=== PATIENT | female | born 1985 | race Caucasian/White ===

== ENCOUNTER → 2018-01-13 09:09 | Outpatient (CLI) | payer MEDICAID, SELFPAY ==
--- NOTE | 2018-01-13 09:42 | MR_ITS ---
MR head/brain wo/w con Ordering Physician: Jose J Villagran MD Patient Age: 32 years: Female HISTORY: ITS.REASON: SENSORY NEURAL HEARING LOSS Hearing loss bilateral hearing loss. Symptoms for years. Dizziness. Headache. TECHNIQUE: Precontrast Multiplanar FLAIR, T1, T2 weighted images along with axial diffusion/ADC imaging performed on 1.5 T. Siemens, MRI. Postcontrast imaging [id number] ProHance T1-weighted images axial & coronal plane performed In addition thin section pre and postcontrast and IACs, axial coronal plane utilized. COMPARISON :CT head 12/29/2016 FINDINGS IACs appear WNL. Cranial nerve VII and VIII appear normal. Normal caliber. Normal course. Trigeminal nerve unremarkable bilateral. No abnormal enhancement. No acoustic neuroma. CP angles clear. Generous normal caliber of symmetric IACs bilaterally.. Overall normal appearance of the transverse dural sinuses and superior sagittal sinus. The posterior fossa is satisfactory. . Posterior Left mastoid tip demonstrate increased signal due to stable appearing opacification of a 10 mm air cell along posterior left mastoid tip. In retrospect this can be seen and appears stable since previous December 2016 CT head studies. Most likely a chronic minimal mastoid effusion here. Otherwise well-developed remaining left mastoid air cell unremarkable and satisfactory. Both right and left mastoid antrum and middle ear appear clear. The right mastoid air cells unremarkable. Remainder the brain shows no abnormal areas of enhancement. No mass lesion no mass effect. The diffusion images show acute infarct nor recent ischemia. . There is normal anatomy Ventricles and basal cisterns appear normal. Cranial cervical junction is normal. Sella unremarkable as is suprasellar cistern region. Orbits appear satisfactory.. Paranasal sinuses are clear with only borderline mucosal thickening at ethmoid air cells. Engorgement of the nasal turbinates with deviation nasal septum convexity to left noted on coronal images The skull appears intact Suggestion of possible small high signal foci in the deep white matter at right cerebral hemisphere. With small 3.5 mm focus increased signal focus deep white matter seen just anterior to right basal ganglia, & just lateral to head of caudate nucleus on right (axial image 12, coronal slice 90) I would note that this is not particularly intense signal becomes less evident on the coronal view. Conceivably could be some reflect some asymmetric deep extension of hanson matter to this region. Is nonspecific observation as isolated finding & for example can be seen with old viral infections. However If clinical symptoms should raise concern regarding demyelinating disease follow-up MRI brain an 6-12 months may be considered. Unlikely vascular disease in this younger age patient At superior left cerebral hemisphere equivocal a small 2.5 mm possible high signal focus seen far superior on axial image 19, coronal slice 12. However this area is on further review this may may reflect white matter margin along deep portion of a thin sulcus. Doubt of significance White matter the posterior fossa and shelley unremarkable IMPRESSION.............. 1. Cranial nerve VII and VIII appear normal. IACs generous symmetrical and normal bilaterally. CP angles posterior clear 2. Opacification of left mastoid 1 cm left posterior mastoid tip air cell..- This appears unchanged since prior CT and likely reflects a minor incidental mastoid effusion. Otherwise the mastoid air cells mastoid antrum middle ear appear clear unremarkable. 3. Normal intracranial anatomy No lesions. No abnormal areas of enhancement. 4. Would only note 3.5 mm possible small deep white matter high signal focus, just anterior to the right basal ganglia.... Nonspecific minor i
== END ==
PROVIDERS: Family Provider Nurse Practitioner Family; PCP Family Medicine; Visit Provider Otolaryngology
DX: H90.5 Unspecified sensorineural hearing loss (principal)
CPT/HCPCS: 70553; A9576

== ENCOUNTER → 2020-12-14 10:06 | Outpatient (CLI) | payer OTHER, SELFPAY ==
--- NOTE | 2020-12-14 10:12 | XR_ITS ---
PROCEDURE: XR MULTIPLE SPINE 6+V CLINICAL INDICATION: LUMBAGO W/SCIATICA,CERVICALGIA,MIDLINE THORACIC BACK PAIN COMPARISON: No exams were available for comparison FINDINGS: Cervical spine: There is straightening/reversal of the normal lordosis which may be due to patient positioning or muscle spasm. No obvious fracture or dislocation. No lytic or blastic change. There is artifact from the patient's hair. The foramina are widely patent. Thoracic spine: Minimal lower thoracic scoliosis convex left. No fracture or dislocation. No lytic or blastic change. There is some minimal degenerative changes in the midthoracic spine with decrease in the disc space and minimal endplate hypertrophic change. Lumbar spine: Minimal lumbar curvature convex right. No fracture or dislocation. No lytic or blastic change. IMPRESSION: No acute finding. Minimal thoracolumbar scoliosis with mild degenerative changes in the midthoracic spine There is straightening/reversal of the normal lordosis of the cervical spine which may be due to patient positioning or muscle spasm. Dictated by: Demetrio Hawk MD 12/16/2020 05:53 Demetrio Hawk MD in [place] 12/16/2020 05:53
== END ==
PROVIDERS: PCP Nurse Practitioner Family; Visit Provider Nurse Practitioner Family
DX: M54.2 Cervicalgia (principal); M54.6 Pain in thoracic spine; M54.41 Lumbago with sciatica, right side; M54.42 Lumbago with sciatica, left side
CPT/HCPCS: 72084

== ENCOUNTER → 2021-02-12 14:18 | Outpatient (CLI) | payer OTHER, SELFPAY | PROVIDERS: PCP Nurse Practitioner Family; Visit Provider Obstetrics & Gynecology Gynecology | DX: Z01.812 Encounter for preprocedural laboratory examination (principal); Z11.52 Encounter for screening for COVID-19 | CPT/HCPCS: U0003 ==

== ENCOUNTER → 2022-06-25 10:48 | Outpatient (CLI) | payer OTHER, SELFPAY | PROVIDERS: PCP Nurse Practitioner Family; Visit Provider Colon & Rectal Surgery | DX: Z01.818 Encounter for other preprocedural examination (principal); Z20.822 Contact with and (suspected) exposure to COVID-19 | CPT/HCPCS: C9803; U0003; U0005 ==

== ENCOUNTER → 2023-04-22 15:26 | Outpatient (CLI) | payer OTHER, SELFPAY ==
--- NOTE | 2023-04-22 16:01 | XR_ITS ---
FINAL REPORT CLINICAL HISTORY: SOA COMPARISON: 09/09/2019 FINDINGS: TWO VIEW CHEST The heart size is normal. The mediastinum is normal. The lungs are clear. There is no pneumothorax. IMPRESSION: No acute cardiopulmonary process. Reviewed, Interpreted and Dictated by Malik Jay III, MD Transcribed by Sanju Samayoa Authenticated and [facility]
[2023-04-22 16:20] LABS: Basophils # 0.1 K/mm3 (0-0.2); Basophils % 0.5 % (0.1-2.0); Eosinophils # 0.2 K/mm3 (0.0-0.4); Eosinophils % 1.4 % (0.1-12.0); Hematocrit 44.9 % (37.0-47.0); Hemoglobin 14.3 g/dL (12.2-16.2); Lymphocytes # 4.4 K/mm3 (0.7-4.5); Lymphocytes % 32.2 % (10-50); Mean Corpuscular HGB Conc 31.8 g/dL (31.8-35.4); Mean Corpuscular Hemoglobin 32.2 pg (27.0-31.2); Mean Corpuscular Volume 101.1 fl (81-99); Mean Platelet Volume 8.3 fl (7.4-10.4); Monocytes # 0.6 K/mm3 (0.1-1.0); Monocytes % 4.2 % (1.7-9.3); Neutrophils # 8.4 K/mm3 (1.8-7.8); Neutrophils % 61.8 % (37.0-80.0); Platelet Count 315 K/mm3 (142-424); Red Blood Count 4.44 M/mm3 (4.20-5.40); Red Cell Distribution Width 12.6 % (11.5-17.5); White Blood Count 13.6 K/mm3 (4.8-10.8)
[2023-04-22 16:25] LABS: Adenovirus F 40/41, stool Not Detected (NotDetected); Astrovirus Not Detected (NotDetected); Campylobacter Not Detected (NotDetected); Cryptosporidium Not Detected (NotDetected); Cyclospora Cayetanesis Not Detected (NotDetected); Entamoeba histolytica Not Detected (NotDetected); Enteroaggregative E coli Not Detected (NotDetected); Enteropathogenic E coli Not Detected (NotDetected); Enterotoxigenic E coli Not Detected (NotDetected); Giardia lamblia Not Detected (NotDetected); Norovirus Not Detected (NotDetected); Plesimonas Shigalloides, PCR Not Detected (NotDetected); Rotavirus A Not Detected (NotDetected); Salmonella, PCR Not Detected (NotDetected); Sapovirus Not Detected (NotDetected); Shiga-like toxin E coli Not Detected (NotDetected); Shigella Enterovasive E coli Not Detected (NotDetected); Vibrio Cholerae Not Detected (NotDetected); Vibrio, PCR Not Detected (NotDetected); Yersinia Entercolitica, PCR Not Detected (NotDetected)
[2023-04-22 16:58] LABS: Alanine Aminotransferase 17 U/L (12-78); Albumin Level 3.9 g/dl (3.5-5.0); Albumin/Globulin Ratio 1.5 (1.1-1.8); Alkaline Phosphatase 61 U/L (38-126); Anion Gap 8.1 mEq/L (5-15); Aspartate Amino Transferase 30 U/L (14-36); Bilirubin,Total < 0.1 mg/dl (0.2-1.3); Blood Urea Nitrogen 7 mg/dl (7-17); Calcium 8.9 mg/dl (8.4-10.2); Carbon Dioxide 29 mmol/L (22.0-30.0); Chloride 107 mmol/L (98-107); Chol/HDL Ratio 3.5 (1-3.5); Cholesterol 173 mg/dl (140-200); Estimated Glomerular Filt Rate 95 ml/min (>60); GFR (African American) 115 ML/MIN (>60); Globulin 2.6 g/dL (1.3-3.2); Glucose 95 mg/dl (74-100); HDL Cholesterol 49 mg/dl (40-60); Potassium 3.1 mmoL/L (3.5-5.1); Sodium 141 mmol/L (136-145); Total Protein,Serum 6.5 g/dl (6.3-8.2); Triglycerides 139 mg/dl (30-150); VLDL Cholesterol 28 mg/dL (0-40)
[2023-04-22 17:10] LABS: Direct LDL Cholesterol 96.72 mg/dL (100-129)
[2023-04-22 17:11] LABS: 25-OH Vitamin D, Total 30.2 ng/mL (30-100)
[2023-04-22 17:26] LABS: Thyroid Stimulating Hormone 0.46 uIU/mL (0.465-4.68)
[2023-04-22 17:45] LABS: Vitamin B12 902 pg/mL (239-931)
[2023-04-23 10:46] LABS: Clostridium Difficile A/B, PCR Detected (NotDetected)
== END ==
PROVIDERS: PCP Nurse Practitioner Family; Visit Provider Nurse Practitioner Family
DX: R06.02 Shortness of breath (principal); R53.83 Other fatigue; N30.00 Acute cystitis without hematuria; R19.7 Diarrhea, unspecified; A04.72 Enterocolitis due to Clostridium difficile, not specified as recurrent
CPT/HCPCS: 36415; 71046; 80053; 80061; 82306; 82607; 84443; 85025; 85378; 87086; 87507

== ENCOUNTER → 2023-04-29 07:41 | Outpatient (CLI) | payer OTHER, SELFPAY ==
[2023-04-29 08:20] VITALS: PULSE 61; PULSE 68
== END ==
PROVIDERS: PCP Nurse Practitioner Family; Visit Provider Nurse Practitioner Family
DX: R06.02 Shortness of breath (principal)
CPT/HCPCS: 94060; 94640

== ENCOUNTER → 2023-05-01 13:58 | Outpatient (CLI) | payer OTHER, SELFPAY ==
--- NOTE | 2023-05-01 14:04 | MR_ITS ---
FINAL REPORT TECHNIQUE: Multi plantar and multisequence imaging of the cervical spine was obtained before and after the administration of intravenous contrast. CLINICAL HISTORY: NECK PAIN ON LEFT SIDE, STIFFNESS OF NECK. MIGRAINE HEADACHE. LEFT ARM PAIN, NUMBNESS, AND TINGLING. NO INJURY OR TRAUMA COMPARISON: None FINDINGS: There is normal alignment of the cervical vertebral bodies. Vertebral body height is preserved. Bone marrow signal intensity is normal. There is no edema or pathologic marrow replacement. The signal intensity within the substance of the spinal cord is normal. There is no paraspinal mass or fluid collection. C2-C3: There is no focal disc herniation, central stenosis or neural foraminal narrowing. C3-C4: There is no focal disc herniation, central stenosis or neural foraminal narrowing. C4-C5: There is no focal disc herniation, central stenosis or neural foraminal narrowing. C5-C6: There is no focal disc herniation, central stenosis or neural foraminal narrowing. C6-C7: An annular bulge is present. There is no significant canal or neural foraminal narrowing. C7-T1: There is no focal disc herniation, central stenosis or neural foraminal narrowing. Postcontrast images reveal no pathologic contrast enhancement. IMPRESSION: Very minimal degenerative change at the C6-7 level, otherwise unremarkable MRI of the cervical spine. Reviewed, Interpreted and Dictated by Dee Reyes MD Transcribed by May Tam Authenticated and [facility]
== END ==
PROVIDERS: PCP Nurse Practitioner Family; Visit Provider Nurse Practitioner Family
DX: M54.2 Cervicalgia (principal); M43.6 Torticollis; R20.0 Anesthesia of skin; R20.2 Paresthesia of skin
CPT/HCPCS: 72156; 76376; A9576

== ENCOUNTER 2023-05-29 09:30 | Outpatient (RCR) | payer OTHER, SELFPAY ==
--- NOTE | 2023-05-07 09:33 | HMH.PTOPEV ---
PT Outpatient Evaluation Rehab PT Outpatient Evaluation Start: 05/07/23 09:18 Freq: Status: Active Protocol: Document 05/07/23 09:18 FRED (Rec: 05/07/23 09:33 FRED [id number]) E-signed By Sergio Menchaca, PT Outpatient Therapy Subjective History Subjective History Patient is a 37 year old female presenting to outpatient PT with reports of sub-acute cervical spine pain with LUE radicular symptoms. Symptoms of insidious onset starting approx 2 months ago. Most recent imaging indicates annular disc bulge of C 6/7. No other comorbidities to report. NDI 54%. Chief Complaint Pain,Stiff,Paresthesia Symptom Type Ache,Sharp,Dull,Numbness, Tingling Symptoms Relieved By Prescription Meds Symptoms Aggravated By Physical Activity,Lifting Prior Functional Limitations None Current Functional Limitations Reaching,Lifting,Housework, Driving,Sleeping Symptom Description Constant but Variable Level of pain today (0-10) 7 Pain scale - at its best (0-10) 4 Pain scale - at its worst (0-10) 8 Cervical Eval Palpation Cervical Muscles R Suboccipital,L Suboccipital, R Upper Trapezius,L Upper Trapezius Posture Head/C-Spine Posture Sitting Position C-Spine Flattened Head/C-Spine Posture Standing Position C-Spine Flattened Flexibility Deficits Upper Trapezius Muscle Length (R) Mild Tightness,(L) Moderate Tightness Scalene Group Muscle Length (R) Mild Tightness,(L) Mild Tightness Pectoralis Minor Muscle Length (R) Moderate Tightness,(L) Moderate Tightness Passive Joint Mobility Cervical PIVM WNL: R OA L OA R AA L AA R C2/3 L C2/3 R C3/4 L C3/4 R C4/5 L C4/5 R C5/6 L C5/6 R C6/7 L C6/7 R C7/T1 L C7/T1 AROM Cervical Spine Extension Active Range
== END 2023-05-29 09:35 | disposition home or self-care (01) ==
LOC: PT 09:30
PROVIDERS: PCP Nurse Practitioner Family; Visit Provider Nurse Practitioner Family
DX: M54.2 Cervicalgia (principal); M43.6 Torticollis; R20.0 Anesthesia of skin; R20.2 Paresthesia of skin
CPT/HCPCS: 97163

== ENCOUNTER 2023-06-17 09:09 | Emergency (ER) | payer OTHER, SELFPAY ==
[2023-06-17 09:10] VITALS: BP 154/84; PULSE 76; RESP 18; TEMP 36.9; O2SAT 98; BMI 26.9
--- NOTE | 2023-06-17 10:34 | EXP.UTC ---
Discharge Plan Disposition Patient Disposition: Home, Self-Care Condition: Good Prescriptions Prescriptions: New pseudoephedrine HCl 30 mg tablet 30 mg PO Q6HP PRN (Reason: Congestion) Qty: 30 0RF methylprednisolone 4 mg Tablets,Dose Pack 4 mg PO DIRECTED Qty: 21 0RF No Action bupropion HCl 300 mg tablet extended release 24 hr 300 mg PO DAILY 30 Days Qty: 30 Patient Comments: albuterol sulfate [ProAir HFA] 90 mcg/actuation HFA aerosol inhaler 2 inh inhalation aripiprazole 30 mg tablet 30 mg PO Dificid 200 mg tablet 200 mg PO DAILY Referrals Follow up/Referrals: Siobhan Carreon APRN [Primary Care Provider] - See instructions Activity Restrictions/Add. Instructions Additional Instructions/Restrictions: Drink plenty of fluids. Take tylenol or ibuprofen for pain or fever. Take the medications as directed. Follow up with your regular doctor. GO TO THE ER FOR ANY WORSENING SYMPTOMS Clinical Impressions Clinical Impression: Sinusitis Instructions Patient Instructions: DI for Sinusitis Discharge ED Provider: Vijay Yoon [facility] General Stated complaint: congestion, cough, runny nose,headache Time Seen by Provider: 06/17/23 10:34 History of Present Illness Provider Complaint: She states that for the past 4 day she has had worsening sinus congestion, ear pain, sore throat and malaise. Related Data Home Medications Medication Instructions Recorded Confirmed bupropion HCl 300 mg 24 hr tablet, 300 mg PO DAILY Depression 30 days 11/14/17 10/03/22 extended release ##30 albuterol sulfate 90 mcg/actuation 2 inh inhalation 10/03/22 10/03/22 aerosol inhaler (ProAir HFA) aripiprazole 30 mg tablet 30 mg PO 10/03/22 10/03/22 fidaxomicin 200 mg tablet (Dificid) 200 mg PO DAILY cdiff 06/17/23 06/17/23 Previous Rx's Medication Instructions Recorded methylprednisolone 4 mg tablets in 4 mg PO DIRECTED #21 tabs 06/17/23 a dose pack pseudoephedrine HCl 30 mg tablet 30 mg PO Q6HP PRN Congestion #30 06/17/23 tabs Allergies Allergy/AdvReac Type Severity Reaction Status Date / Time No Known Allergies Allergy Verified 06/17/23 10:43 [facility] Disclaimer: The information contained in this section may have been updated after the patient was seen, as this information can be updated by other users. Medical History (Updated 06/17/23 @ 11:25 by Vijay Yoon APRN) delivery delivered Surgical History (Updated 10/03/22 @ 08:49 by ANGELINE Sutton) H/O: hysterectomy History of tonsillectomy Social History Smoking Status: Current every day smoker tobacco type: cigarettes packs per day: 1 alcohol intake: never counseling provided: none substance use type: denies use current occupational status: employed Travel in the last 8 weeks: None household members: family housing: house ROS Obtained: Yes All systems reviewed & no additional complaints except as documented Constitutional Constitutional: Reports poor appetite Eyes Eyes: Reports system reviewed and no additional complaints, except as documented ENT Ears, Nose, Mouth, and Throat: Reports as per HPI Cardiovascular Cardiovascular: Reports system reviewed and no additional complaints, except as documented and Denies chest pain Respiratory Respiratory: Denies shortness of breath, Denies chest congestion, Reports cough, Denies stridor and Denies wheezing Gastrointestinal Gastrointestingal: Reports system reviewed and no additional complaints, except as documented; Denies abdominal pain, diarrhea or vomiting Musculoskeletal Musculoskeletal: Reports system reviewed and no additional complaints, except as documented and Denies arthralgias Integumentary/Breasts Skin/Breast: Reports system reviewed and no additional complaints, except as documented and Denies rash Neurologic Neurologic: Denies paresthesia
[2023-06-17 11:25] VITALS: BP 154/84; PULSE 76; RESP 18; TEMP 36.9; O2SAT 98
== END 2023-06-17 11:25 | disposition home or self-care (01) ==
PROVIDERS: Emergency Provider Nurse Practitioner Family; PCP Nurse Practitioner Family
DX: J01.90 Acute sinusitis, unspecified (principal); J02.9 Acute pharyngitis, unspecified; R53.81 Other malaise; F17.210 Nicotine dependence, cigarettes, uncomplicated
CPT/HCPCS: 99204; 99212; G0463

== ENCOUNTER → 2023-08-06 10:29 | Outpatient (CLI) | payer OTHER, SELFPAY ==
[2023-08-06 10:34] LABS: Adenovirus F 40/41, stool Not Detected (NotDetected); Astrovirus Not Detected (NotDetected); Campylobacter Not Detected (NotDetected); Clostridium Difficile A/B, PCR Not Detected (NotDetected); Cryptosporidium Not Detected (NotDetected); Cyclospora Cayetanesis Not Detected (NotDetected); Entamoeba histolytica Not Detected (NotDetected); Enteroaggregative E coli Not Detected (NotDetected); Enterotoxigenic E coli Not Detected (NotDetected); Giardia lamblia Not Detected (NotDetected); Norovirus Not Detected (NotDetected); Plesimonas Shigalloides, PCR Not Detected (NotDetected); Rotavirus A Not Detected (NotDetected); Salmonella, PCR Not Detected (NotDetected); Sapovirus Not Detected (NotDetected); Shigella Enterovasive E coli Not Detected (NotDetected); Vibrio Cholerae Not Detected (NotDetected); Vibrio, PCR Not Detected (NotDetected); Yersinia Entercolitica, PCR Not Detected (NotDetected)
[2023-08-11 14:25] LABS: Enteropathogenic E coli Not Detected (NotDetected)
[2023-08-11 14:33] LABS: Shiga-like toxin E coli Detected (NotDetected)
== END ==
PROVIDERS: PCP Nurse Practitioner Family; Visit Provider Nurse Practitioner Family
DX: A04.72 Enterocolitis due to Clostridium difficile, not specified as recurrent (principal)
CPT/HCPCS: 87507

== ENCOUNTER 2024-05-22 12:55 | Emergency (ER) | payer OTHER, SELFPAY ==
[2024-05-22 12:56] VITALS: BP 140/79; PULSE 60; RESP 18; TEMP 36.7; O2SAT 99; BMI 27.9
--- NOTE | 2024-05-22 13:02 | PC.NURSE ---
DR PAPPAS AT BEDSIDE
--- NOTE | 2024-05-22 13:12 | XR_ITS ---
PROCEDURE INFORMATION: Exam: XR Chest Exam date and time: 05/22/2024 1:16 PM Age: 38 years old Clinical indication: Pain; Dyspnea; Chest pressure TECHNIQUE: Imaging protocol: Radiologic exam of the chest. Views: 1 view. COMPARISON: CR XR CHEST 2V 04/22/2023 4:06 PM FINDINGS: Lungs: Unremarkable. No consolidation. Pleural spaces: Unremarkable. No pleural effusion. No pneumothorax. Heart/Mediastinum: Unremarkable. No cardiomegaly. Bones/joints: Unremarkable. IMPRESSION: No acute findings.
--- NOTE | 2024-05-22 13:13 | HMH.EDGENADL ---
Discharge Plan Disposition Patient Disposition: Home, Self-Care Prescriptions Prescriptions: No Action rizatriptan 10 mg tablet 10 mg PO Q2H PRN cetirizine [Allergy Relief (cetirizine)] 10 mg tablet 10 mg PO DAILY PRN (Reason: allergy symptoms) Qty: 30 1RF mupirocin 2 % ointment 1 applic topical BID Qty: 15 0RF Referrals Follow up/Referrals: Fausto Simon [Referring] - See instructions Provider,Referral, [Primary Care Provider] - See instructions Activity Restrictions/Add. Instructions Additional Instructions/Restrictions: No emergent medical condition identified today. Given the fact that you have a history of peptic ulcers and you had significant improvement with your GI cocktail I suspect this may be on the spectrum of GERD/peptic ulcer disease. I recommend that you follow-up with Dr. Fausto Simon discussed possibly having another endoscopy. Return with any significant worsening symptoms or other concerns Clinical Impressions Clinical Impression: Abdominal pain, RUQ Instructions Patient Instructions: DI for Acute Abdominal Pain Print Language Print Language: Kinyarwanda Discharge ED Provider: Russell Ma General Adult HPI General Chief complaint: Abdominal Pain Stated complaint: pain in middle of abd Time Seen by Provider: 05/22/24 13:01 Mode of Arrival: Ambulatory Source of Information: Patient Limitations: No Limitations Description of Symptoms (Recalled from ER Triage Doc. by RN): Patient reports hernia pain for 2 weeks. States it hurts so bad she can't lean back. History of Present Illness HPI narrative: Patient is a 38-year-old female present today with right upper quadrant abdominal pain. States this has not been postprandial in nature and she has been coughing she chronically coughs with a smoker's cough and states it is possible she pulled a muscle. She reported hernia but did not specifically feel a bulge noted she had a history of hernias this was just something that she thought may be a possibility. Hurts with any type of movement particular with sitting forward. No shortness of breath exertional symptoms nausea vomiting diarrhea etc. History of . Related Data Home Medications ?Medication ?Instructions ?Recorded ?Confirmed rizatriptan 10 mg tablet 10 mg PO Q2H PRN 04/13/24 05/04/24 Previous Rx's ?Medication ?Instructions ?Recorded cetirizine 10 mg tablet (Allergy 10 mg PO DAILY PRN allergy 04/13/24 Relief (cetirizine)) symptoms #30 tabs mupirocin 2 % topical ointment 1 applic topical BID #15 grams 05/04/24 Allergies Allergy/AdvReac Type Severity Reaction Status Date / Time No Known Allergies Allergy Verified 05/04/24 09:18 [facility] Disclaimer: The information contained in this section may have been updated after the patient was seen, as this information can be updated by other users. Medical History delivery delivered Surgical History History of tonsillectomy H/O: hysterectomy Family History Other No significant family history Social History Smoking Status: Current every day smoker tobacco type: cigarettes packs per day: 1 alcohol intake: never counseling provided: none substance use type: denies use current occupational status: employed Travel in the last 8 weeks: None household members: family housing: house ROS Obtained: Yes All systems reviewed & no additional complaints except as documented Physical Exam General General appearance: alert and in no apparent distress Respiratory Respiratory exam: Present normal lung sounds bilaterally Cardiovascular Cardiovascular exam: Present regular rate Abdominal Exam Abdominal exam: Present soft, distention and tenderness (Patient has right upper quadrant tenderness right at the margin of her ribs and her abdomen otherwise abdomen is extremely soft nontender no rebound or guarding) Neurological Exam Neurological exam: Present alert and oriented X3 Medical Decision Making Lamonte Inquiry Pt receiving controlled substance: No Vital Signs: 05/22/24 12:56 05/22/24 13:30 Temperature 98.0 F Temperature Source Oral Pulse Rate 68 Pulse Rate [Radial] 60 Respiratory Rate 18 Blood Pressure 121/63 Blood Pressure [Right Arm] 140/79 Blood Pressure Mean [Right Arm] 99 Blood Pressure Source [Right Arm] Automatic Cuff Blood Pressure Position [Right Arm] Sitting 02 Sat by Pulse Oximetry 99 97 Oxygen Delivery Method Room Air Lab Data Lab results reviewed: Yes I reviewed the patient's lab results. Lab Results 05/22/24 13:20: WBC 12.1 H, RBC 4.25, Hgb 13.6, Hct 41.9, MCV 98.6, MCH 32.0 H, MCHC 32.4, RDW 13.2, Plt Count 235, MPV 8.5, Neut % (Auto) 69.0, Lymph % (Auto) 25.9, [place] % (Auto) 3.3, Eos % (Auto) 0.9, Baso % (Auto) 1.0, Neut # (Auto) 8.4 H, Lymph # (Auto) 3.1, [place] # (Auto) 0.4, Eos # (Auto) 0.1, Baso # (Auto) 0.1, Sodium 140, Potassium 3.3 L, Chloride 112 H, Carbon Dioxide 25, Anion Gap 6.3, BUN 8, Creatinine 0.70, Estimated Creat Clear 114, Estimated GFR 95, Est GFR ( Amer) 115, Glucose 79, Calcium 8.8, Total Bilirubin 0.6, AST 29, ALT 16, Alkaline Phosphatase 55, Troponin I < 0.01, Total Protein 7.1, Albumin 4.2, Globulin 2.9, Albumin/Globulin Ratio 1.4, Lipase 69, Serum HCG, Qual Negative 05/22/24 13:20 05/22/24 13:20 Orders (Tests/Meds): ED MEDICATIONS Generic Name Dose Route Start Last Admin Trade Name Freq PRN Reason Stop Dose Admin Lactated Ringer's 1,000 mls @ 999 mls/hr 05/22/24 13:15 05/22/24 13:37 Lactated Ringer's 1000 Ml Bag IV 05/22/24 14:15 999 mls/hr .Q1H1M ANDERSON Administration Sodium Chloride 8 ml 05/22/24 13:12 05/22/24 13:37 Sodium Chloride 0.9% 10ml Vial IV 06/21/24 13:11 8 ml NEEDED PRN Administration dilute pepcid Discontinued Medications Generic Name Dose Route Start Last Admin Trade Name Freq PRN Reason Stop Dose Admin Belladonna Alkaloids 60 ml 05/22/24 13:12 05/22/24 13:37 Belladonna Alkaloids 60 Ml Ml PO 05/22/24 13:13 60 ml ONCE ONE Administration Famotidine 20 mg 05/22/24 13:12 05/22/24 13:38 Famotidine 20mg/2ml Vial IV 05/22/24 13:13 20 mg ONCE ONE Administration Ketorolac Tromethamine 15 mg 05/22/24 13:12 05/22/24 13:38 Ketorolac 30mg/Ml Vial IV 05/22/24 13:13 15 mg ONCE ONE Administration ORDERS Category Date Time Status CXR --portable [XR chest portable] Stat Exams 05/22/24 13:12 Taken POCUS Point of Care (ER Only) Stat Exams 05/22/24 13:06 Ordered CBC w/Auto Diff [Complete Blood Count Auto Diff] Stat Lab 05/22/24 13:20 Completed CMP [Comprehensive Metabolic Panel] Stat Lab 05/22/24 13:20 Completed HCG Qualitative, Serum Stat Lab 05/22/24 13:20 Completed Lipase Stat Lab 05/22/24 13:20 Completed Trop I [Troponin I] Stat Lab 05/22/24 13:20 Completed Troponin I Q3H Lab 05/22/24 16:15 Ordered Troponin I Q3H Lab 05/22/24 19:15 Ordered Medical Decision Narrative: 38-year-old with right upper quadrant abdominal pain very benign abdominal exam possibly hepatobiliary in nature we will get basic blood work I did limited ultrasound which did not demonstrate any concerning findings suggestive of cholecystitis. Her abdomen is otherwise benign I do not feel that a CT scan is warranted there is no evidence clinically of a hernia. She does not have any signs or symptoms of a pulmonary embolism I think is unlikely her symptoms are most likely consistent with musculoskeletal strain versus GERD. GI cocktail Pepcid Toradol have been administered. Labs pending also will get a chest x-ray to make sure is not any peripheral lung pathology. Chest x-ray performed to person interpreted shows no acute cardiopulmonary emergency Reassessment 203 patient had complete resolution of her symptoms after GI cocktail. After discussing this with her further she states that she has known peptic ulcer disease and follows with Dr. Fausto Simon. Labs otherwise unremarkable not consistent with surgical pathology. She has been advised to follow-up with her GI doctor and to continue to take medications for her known dyspepsia/PUD. Procedures Miscellaneous Procedure Procedure Performed: Limited RUQ ultrasound Indication: Abdominal pain Identified structures: -Gallbladder -Gallbladder wall -Common bile duct -Liver Findings: Normal gallbladder sign no gallstones or sludge present normal anterior gallbladder wall no pericholecystic fluid negative sonographic Sanches's common bile duct visualized and normal Impression: Unremarkable right upper quadrant limited ultrasound Images were saved to permanent archive The study was technically adequate CPT 37613-48 This study was performed by me, and I personally interpreted all images/videos. Based on my clinical judgement, these images were adequate and did not necessitate further imaging. Critical Care Critical Care Time Critical Care Time: No
[2024-05-22 13:30] VITALS: BP 121/63; PULSE 68; O2SAT 97
[2024-05-22 13:34] LABS: Basophils # 0.1 K/mm3 (0-0.2); Eosinophils # 0.1 K/mm3 (0.0-0.4); Eosinophils % 0.9 % (0.1-12.0); Hematocrit 41.9 % (37.0-47.0); Hemoglobin 13.6 g/dL (12.2-16.2); Lymphocytes # 3.1 K/mm3 (0.7-4.5); Lymphocytes % 25.9 % (10-50); Mean Corpuscular HGB Conc 32.4 g/dL (31.8-35.4); Mean Corpuscular Volume 98.6 fl (81-99); Mean Platelet Volume 8.5 fl (7.4-10.4); Monocytes # 0.4 K/mm3 (0.1-1.0); Monocytes % 3.3 % (1.7-9.3); Neutrophils # 8.4 K/mm3 (1.8-7.8); Platelet Count 235 K/mm3 (142-424); Red Blood Count 4.25 M/mm3 (4.20-5.40); Red Cell Distribution Width 13.2 % (11.5-17.5); White Blood Count 12.1 K/mm3 (4.8-10.8)
[2024-05-22 13:35] LABS: Albumin Level 4.2 g/dl (3.5-5.0); Chloride 112 mmol/L (98-107); Potassium 3.3 mmoL/L (3.5-5.1); Sodium 140 mmol/L (136-145)
[2024-05-22] MEDS: LACTATED RINGERS 1000ML 1,000 ML 999 ML IV (13:37)
[2024-05-22] MEDS: BELLADONNA ALKALOIDS 60 ML ML PO (13:37)
[2024-05-22] MEDS: SODIUM CHLORIDE 0.9% 10ML VIAL 8 ML IV (13:37)
[2024-05-22 13:38] LABS: Alanine Aminotransferase 16 U/L (12-78); Albumin/Globulin Ratio 1.4 (1.1-1.8); Alkaline Phosphatase 55 U/L (38-126); Anion Gap 6.3 mEq/L (5-15); Aspartate Amino Transferase 29 U/L (14-36); Bilirubin,Total 0.6 mg/dl (0.2-1.3); Blood Urea Nitrogen 8 mg/dl (7-17); Carbon Dioxide 25 mmol/L (22.0-30.0); Creatinine Clearance Estimated 114 mL/min (50-200); Estimated Glomerular Filt Rate 95 ml/min (>60); GFR (African American) 115 ML/MIN (>60); Globulin 2.9 g/dL (1.3-3.2); HCG Qualitative, Serum Negative (Negative); Lipase 69 U/L (23-300); Total Protein,Serum 7.1 g/dl (6.3-8.2)
[2024-05-22] MEDS: KETOROLAC 30MG/ML VIAL 15 MG IV (13:38)
[2024-05-22] MEDS: FAMOTIDINE 20MG/2ML VIAL 20 MG IV (13:38)
[2024-05-22 13:39] LABS: Calcium 8.8 mg/dl (8.4-10.2); Glucose 79 mg/dl (74-100)
[2024-05-22 13:51] LABS: Troponin I < 0.01 ng/ml (0.00-0.034)
[2024-05-22 14:05] VITALS: BP 139/77; PULSE 62; RESP 16; TEMP 36.7; O2SAT 99
== END 2024-05-22 14:07 | disposition home or self-care (01) ==
PROVIDERS: Emergency Provider Student in an Organized Health Care Education/Training Program
DX: R10.11 Right upper quadrant pain (principal); R05.3 Chronic cough; F17.210 Nicotine dependence, cigarettes, uncomplicated
CPT/HCPCS: 71045; 80053; 83690; 84484; 84703; 85025; 96361; 96374; 96375; 99284; J1885; J7120; S0028